=== PATIENT | female | born 1985 | race Caucasian/White ===

== ENCOUNTER 2024-08-28 10:53 | Outpatient (RCR) | payer MEDICAID, SELFPAY ==
--- NOTE | 2024-08-28 13:17 | HP.FCE ---
Task Lift Floor (Occasional 1-33% of Day): 0 Floor (Frequent 34-66% of Day): 0 Floor (Constant 67-100% of Day): 0 Floor PDL: No Ability Knee (Occasional 1-33% of Day): 15 Knee (Frequent 34-66% of Day): 7.5 Knee (Constant 67-100% of Day): 3.15 Knee PDL: Sedentary-Light Waist (Occasional 1-33% of Day): 15 Waist (Frequent 34-66% of Day): 7.5 Waist (Constant 67-100% of Day): 3.15 Waist PDL: Sedentary-Light Shoulder (Occasional 1-33% of Day): 0 Shoulder (Frequent 34-66% of Day): 0 Shoulder (Constant 67-100% of Day): 0 Shoulder PDL: No Ability Overhead (Occasional 1-33% of Day): 0 Overhead (Frequent 34-66% of Day): 0 Overhead (Constant 67-100% of Day): 0 Overhead PDL: No Ability Comments: pt with no ability in floor lift as well as shoulder and overhead and sedentary-light for knee and waist lift Work Activity/Posture Bending: No Ablility (0% of day) Squatting: No Ablility (0% of day) Kneeling: No Ablility (0% of day) Reaching out: Frequent Ability (34-66% of day) Reaching up: Frequent Ability (34-66% of day) Sitting: Frequent Ability (34-66% of day) Walking: Occasional Ability (1-33% of day) Standing: Occasional Ability (1-33% of day) Reference Reference: Duration Sedentary Sedentary Light Light Light Medium Medium Medium Heavy Very Heavy Heavy Occasional (0-33% of day) Frequent (34-66% of day) Constant (67-100% of day) 10 # Negligible Negligible 15 # 8 # Negligible 20 # 10# Negli. 35 # 18 # 7 # 50 # 25 # 10 # 75 # 100 # >100 # 38 # 50 # >50 # 15 # 20 # >20 # Patient Information Height: 5 ft 7 in Weight:: 99.79 kg Hand Dominance: R Medical History Medical History Including Restrictions: this 39 year old female arrives with order for FCE. Pt reports lower back pain starting in college pt went to [facility] when pt was dx with degenerative disc disease as well as spinal stenosis. pt on pain management with for many years. per pt report May did an MRI reveling 4 herniated disc L5 and S1 budding into nerve root, cysts into back c5 and c6 pinched nerve impacting L arm. EMG complete in 2023 revealing carpal tunnel B hands. pt has now had cortisone shots in hands this past monday08/26/24. surgery to knee 4 years ago on meniscus. Lower back pain does run down L leg pt reports it getting better after epidural shorts which she received Aug 21 2024 pt plan now to get them every 3-4 months. pt has received cortisone shots to knee for pain. Pt has done therapy for back as well as shoulder and knee. pt has also tried chiropractor as well as acupuncture. pt has never had surgery on back. Nueropathy of B hands not in feet. pt does wear brace on L knee. pt has had at least x1 bad fall which she received concussion. Diagnoses Diagnoses: chronic low back pain without sciatica osteoarthritis of spine with radiculopathy thoracic region major depression in remission agoraphobia bipolar affective disorder primary osteoarthritis of L shoulder spinal stenosis lumbar region with neurogenic claudication panic attacks Symptoms Symptoms: pain around cervical region runs down L arm pain and numbness swelling and tingling of B hands lumbar back pain that worsens toward sacral region pain radiated down L leg to ankle -- leg cramps as result pain in L knee -- knee will occ give out shooting pain in L knee when going up and down steps dizziness spells will lose balance out of no where -- chiari malformation pain slightly subsided going down <L leg after epidural shots Pain Pain: cervical region back pain 2/10 can get up to 10/10 lower back pain 4/10 can go up to 10/10 pt takes lyrica aleve as needed [place] pain Questionnaire score 35/78 Work History Work History: pt works as upscale security officer at [employer] -- been working there since June 2024 completing 7 hour shifts working 3 days a week pt states its mostly sitting with monitoring of cameras walks x1 building with elevator -- checks multi dorms able to sit in car to check or at student building where she can watch from cameras per pt she walks max 15 min durations at current job elevator access in buildings does not need to manage stairs does wear L knee brace while working and takes cane for mobility prior to current job 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 pt has approx 14 stairs to enter home with handrail unilateral side R side ascending. pt has assistance with brushing back of hair and washing back assist with undergarments' assist with donning pants pt with difficulty bending to perform tasks occ assist with completing UB dressing. mother will assist with theses ADSL tasks. pt uses shower chair for bathing task in tub shower with grab bars and anti slip mat standard commode however does have a riser does have bar next to commode to utilize. pt does drive. pt mother performs cooking and cleaning at home. per pt she can use microwave and light vacuming. pt will put own clothing away mother does actual washing of clothes. Physical Examination Physical Examination: baseline sitting HR 89 bpm 02 at 98% baseline pain upper 3/10 back lower back 5/10 pain L knee 3/10 hands 2/10 pain walks from waiting area to OT section 199 feet no cane no L knee brace does limp on L side hold L arm close to body in arm bent position no arm swing unable to carry own purse mother carries in and therapist asked to carry to door with them while leaving due to pt inability to carry and mother tired unable to assist. ROM: Upper extremity L shoulder flexion 110 R shoulder flexion WFL L elbow -40/115 R elbow wfl L shoulder abduction 65 degrees L shoulder only able to get to mid hip unable to bring arm to back ER 15 degrees R shoulder ER 90 degrees lower extremity: hip flexion L able to raise it up however jumpy slight assist with hand with end range hip flexion R WFL L knee flexion wfl L knee extenion -15 R knee flexion and extension wfl able to pump B ankles Strength: upper extremity: L shoulder flexion: 5.5# R shoulder flexion: 20.9# L bicep: 11.1# R bicep: 16.8# L tricep: 9.3# R tricep: 19.6# L ER: 5.7# R ER: 11.6# Lower extremity: L hip flexor: 5.3# R hip flexor: 20.3# L hamstrin.1# R hamstrin.5# L quad: 13.8# R quad: 16.2# Right Driveway Sealer Strength Average: 48.[address] Sealer Strength Percentile: 6th percentile Left Driveway Sealer Strength Average: 23.[address] Sealer Strength Percentile: <.2 percentile Right Lateral Pinch Average: 8.00 Right Lateral Pinch Percentile: <10th percentile Left Lateral Pinch Average: 3.00 Left Lateral Pinch Percentile: <10th percentile Right Tripod Pinch Average: 13.00 Right Tripod Pinch Percentile: 50th percentile Left Tripod Pinch Average: 6.00 Left Tripod Pinch Percentile: <10th percentile Comments: per pt B hands sore from completion B thumbs increased soreness Sensation: semme milagros monofilament test L hand thumb as well as D3-5 2.83 indicating normal sensation and IF was 3.61 indicating diminished light touch sensation R hand all digits 2.44 indicating normal sensation Fine Motor: 9 hole peg assessment L hand trial 1: 35 sec L hand trial 2:37 sec L hand trial 3: 32 sec average of 34.6 seconds indicating pt in 0th percentile for age and gender R hand trial 1: 20 sec R hand trial 2: 21 sec R hand trial 3: 19 sec average of 20 seconds indicating pt in 25th percentile for age and gender Balance: standing forward reach at 7 wobbly during task wide stance score between 6-10 indicates pt is moderate risk for falls Non Material Handling Activities Bending: bending trial 11/25: 0/3 bending 10 at own pace: 0/10 bending 10x fast: 0/10 unable to bend at baseline will fall over per pt not willing to trial Squatting: squatting trial 11/25: 0/3 squat 10 at own pace: 0/10 squat 10x fast: 0/10 unable to squat will fall over per pt not willing to trial Kneeling: kneeling trial : 0/3 kneeling 10 at own pace: 0/10 kneeling 10x fast: 0/10 trials and unable to get fully down to floor Reaching out/up: reaching out: reaching out trial: 11/25 R arm only reaching out 10 at own pace: 10/10 R arm only reaching out 10x fast: 10/10 R arm only HR 100 bpm and 02 98% wide stance during task shaking legs unable to do any reaching with L arm for task reaching up: reaching up trial: 11/25 R arm only reaching up 10 at own pace: 07/04 R arm only reaching up 10x fast: 07/04 R arm only HR 130 bpm HR 98% unable to perform with L UE any reaching task Walking: able to walk from OT section to and form step area of therapy room 263 feet unable to walk further at this time no cane and no L knee brace during FCE while walking pt with L LE limp leads with R LE during mobility tasks and holds L arm close to body in 90 degree bent position Standing: per pt able to stand for approx 15 min before needing sitting RB depending on pain level pt able to stand here longest duration approx 8 minutes before needing sitting RB Sitting: per pt able to sit for approx 45 min to 1 hour pt is able to stretch back out and or sit crossed leg able to stretch and maintain sitting at about 2 hours pt has to stand and perform stretches for 2-3 min to then sit back down pt is able to sit for intake of assessment approx 30-35 min with frequent adjustment of posture sits in chair with arm rests and feet on floor Climbing Stairs: pt is able to ascend and descend x10 steps using R UE on hand rail up and down hold L arm close to body in bent position pt leads with R LE going up and going down pt turns sideways going down needs standing RB at top before coming down stairs HR 129 bpm and 02 94% Dynamic Occasional Lifting Capacity Floor Lift: unable to lift box at this time 0# total gets dizzy after trial sets box back on floor HR 97 bpm and 02 98% upper back pain 6/10 lower back pain 7/10 L shoulder pain 6/10 L knee 5/10 Knee Lift: box (15#) unable to lift additional weight at this time total of 15# completes using R arm only L arm just for support not taking load of box wobbly during task HR 112 bpm 02 93% Waist Lift: box (15#) no additional weight total of 15# lifts and takes one side step on way back x2 small steps unstable to get back with trial x2 to perform HR 104 bpm and 02 94% lower back 9/10 with pain going down L leg upper back 6/10 Shoulder Lift: unable total of 0# Overhead Lift: unable total of 0# Carrying: carry of box (15#) half of the distance approx 26 feet therapist needs to take box for second half due to inability to complete L hand slipping off of box and increased instability lower back 06/04 upper back 03/04 L knee 03/04
== END 2024-08-28 19:00 | disposition home or self-care (01) ==
LOC: OT 10:53
PROVIDERS: PCP Internal Medicine; Referring Provider Internal Medicine; Visit Provider Internal Medicine
DX: M54.50 Low back pain, unspecified (principal); M47.24 Other spondylosis with radiculopathy, thoracic region; F32.5 Major depressive disorder, single episode, in full remission; F40.00 Agoraphobia, unspecified; M19.012 Primary osteoarthritis, left shoulder; M48.062 Spinal stenosis, lumbar region with neurogenic claudication; F41.0 Panic disorder [episodic paroxysmal anxiety]; G89.29 Other chronic pain
CPT/HCPCS: 97750